=== PATIENT | male | born 1985 | race Caucasian/White ===

== ENCOUNTER 2019-08-03 18:48 | Emergency (ER) | payer BC, MEDICAID ==
[~2019-08-03] VITALS: Ht 167.6 cm; Wt 90.9 kg
[~2019-08-03 18:48] MED LIST: AUGM875T28 PO; HYDR-3713 PO; METR-265 PO
[2019-08-03] MEDS ORDERED: NS 1,000 ML IV ONE (20:30)
[2019-08-03] MEDS ORDERED: KETOROLAC 30 MG/ML VIAL (J1885) IV ONE (20:30)
[2019-08-03 20:40] LABS: BASO % 0.5 % (0.0-1.0); EOS % 0.2 % (0.0-3.0); HEMATOCRIT 47.4 % (42.0-52.0); HEMOGLOBIN 16.2 g/dl (13.5-17.5); LYMPH # 1.8 10^3/uL (1.5-5.0); MEAN CORPUSCULAR HEMOGLOBIN 30.3 pg (27.0-33.0); MEAN CORPUSCULAR HGB CONC 34.2 g/dl (32.0-36.5); MEAN CORPUSCULAR VOLUME 88.8 fl (80.0-96.0); MONO # 0.5 10^3/uL (0.0-0.8); MONO % 11.7 % (0.0-5.0); NEUTROPHILS # 1.9 10^3/uL (1.5-8.5); NEUTROPHILS % 44.4 % (36.0-66.0); PLATELET COUNT, AUTOMATED 139 10^3/uL (150-450); RED BLOOD COUNT 5.34 10^6/uL (4.30-6.10); WHITE BLOOD COUNT 4.3 10^3/uL (4.0-10.0)
[2019-08-03 21:14] LABS: ALBUMIN 3.9 GM/DL (3.2-5.2); ALT/SGPT 72 U/L (12-78); AMYLASE 82 U/L (25-115); BILIRUBIN,DIRECT 0.2 MG/DL (0.0-0.2); BILIRUBIN,TOTAL 0.5 MG/DL (0.2-1.0); BLOOD UREA NITROGEN 12 MG/DL (7-18); CALCIUM LEVEL 8.7 MG/DL (8.5-10.1); CARBON DIOXIDE LEVEL 29 MEQ/L (21-32); CHLORIDE LEVEL 101 MEQ/L (98-107); CK-MB VALUE MASS 1.3 NG/ML (<3.6); CPK CREATINE PHOSPHOKINASE 207 U/L (39-308); CREATININE FOR GFR 0.89 MG/DL (0.70-1.30); GLOMERULAR FILTRATION RATE > 60.0 (>60); GLUCOSE, FASTING 90 MG/DL (70-100); LIPASE 206 U/L (73-393); MB/CK RELATIVE INDEX 0.63 (< OR =4); POTASSIUM SERUM 3.8 MEQ/L (3.5-5.1); SODIUM LEVEL 139 MEQ/L (136-145); TOTAL PROTEIN 6.9 GM/DL (6.4-8.2); TROPONIN I < 0.02 NG/ML (< 0.10)
[2019-08-03] MEDS ORDERED: ZOFR4TAB16 PO (21:40)
[2019-08-03 22:03] VITALS: BP 127/84
--- NOTE | 2019-08-05 07:20 | ECGEPIP ---
[facility] - ED Test Date: 2019-08-03 Pat Name: KALA SHAY Department: Room: - Gender: Male Arterial Embalmer: JANET : 1985 Requested By: CARMENCITA Mosher PA-C Order Number: [id number] Reading MD: Javier Hughes Measurements Intervals Lolo Rate: 65 P: 43 WY: 179 QRS: 111 QRSD: 102 T: 9 QT: 399 QTc: 417 Interpretive Statements SINUS RHYTHM Comparison tracing not on file Electronically Signed on 08-05-2019 7:20:05 EST by Javier Hughes
== END 2019-08-03 22:04 | disposition home or self-care (01) ==
LOC: M ED 18:48
DX: A08.39 Other viral enteritis (principal)
CPT/HCPCS: 36415; 80048; 80076; 81001; 82150; 82550; 82553; 83690; 84484; 85025; 93005; 96374; 99284; J1885

== ENCOUNTER 2021-05-28 15:14 | Emergency (ER) | payer BC, OTHER, SELFPAY ==
[~2021-05-28] VITALS: Ht 167.6 cm; Wt 86.4 kg
[~2021-05-28 15:14] MED LIST changes: +ZOFR4TAB16 PO
--- NOTE | 2021-05-28 15:54 | REP ---
INDICATION: struck by basketball hoop. COMPARISON: None. TECHNIQUE: Helical scanning is acquired. 5 mm axial images were reformatted. Coronal MPR images were generated. FINDINGS: Bone window settings demonstrate an intact bony calvarium. There is no evidence of skull fracture or incidental bony calvarial lesion. The visualized paranasal sinuses appear clear. No intraorbital abnormality is seen. On soft tissue window setting images; the lateral, third, and fourth ventricles are normal in size and position. Olson-white differentiation pattern is normal above and below the tentorium. There are is no evidence of intracranial hemorrhage. No mass, edema, infarction, or midline shift is seen. No extra-axial fluid collection is appreciated. IMPRESSION: Negative noncontrast head CT. <Electronically signed by Mic Burks > 05/28/21 [id number]
--- NOTE | 2021-05-28 15:56 | REP ---
INDICATION: struck by basketball hoop. COMPARISON: None. TECHNIQUE: Helical scanning is acquired and overlapping 2 mm high resolution axial images were generated and reviewed at bone and soft tissue window settings. Coronal and sagittal multiplanar re-formations images are generated. FINDINGS: There is no evidence of cervical spine element fracture. No skull base fracture is seen. Cervical vertebral body heights are preserved. Alignment is normal. Facet joints are normally aligned bilaterally at each cervical level on multiplanar re-formations images. There is no evidence of intraspinal or paraspinal hematoma. No extra vertebral abnormality is seen. IMPRESSION: Negative CT study of the cervical spine without contrast. No fracture seen. <Electronically signed by Mic Burks > 05/28/21 2927
[2021-05-29 04:16] VITALS: BP 116/70
== END 2021-05-29 04:28 | disposition home or self-care (01) ==
LOC: M ED 15:14
DX: S01.01XA Laceration without foreign body of scalp, initial encounter (principal); W22.8XXA Striking against or struck by other objects, initial encounter; Y92.89 Other specified places as the place of occurrence of the external cause; Y99.0 Civilian activity done for income or pay